=== PATIENT | female | born 1970 | race Caucasian/White ===

== ENCOUNTER 2018-02-28 08:28 | Emergency (ER) | payer BC | END 2018-02-28 10:10 | disposition home or self-care (01) | LOC: FTE 08:28 | DX: R05 Cough (principal); J45.909 Unspecified asthma, uncomplicated; Z87.891 Personal history of nicotine dependence | CPT/HCPCS: 71045; 81025; 99284-25 ==

== ENCOUNTER 2019-01-22 13:58 | Emergency (ER) | payer OTHER, BC | END 2019-01-22 14:53 | disposition home or self-care (01) | LOC: FTE 13:58 | DX: R05 Cough (principal); E03.9 Hypothyroidism, unspecified; J45.909 Unspecified asthma, uncomplicated | CPT/HCPCS: 99283 ==